=== PATIENT | female | born 1945 | race Caucasian/White ===

== ENCOUNTER 2018-11-13 10:03 | Emergency (ER) | payer MEDICARE, OTHER ==
--- NOTE | 2018-11-13 10:24 | EDM.PDOC ---
ED HPI GENERAL MEDICAL PROBLEM - General Chief Complaint: Respiratory Problem Stated Complaint: HARD TIME BREATHING [id number] Time Seen by Provider: 11/13/18 10:23 Source of Information: Reports: Patient History Limitations: Reports: No Limitations - History of Present Illness INITIAL COMMENTS - FREE TEXT/NARRATIVE: sob since back surgery 5 days ago. Middle Back Pain Score (Numeric/FACES): 7 - Related Data Allergies Allergy/AdvReac Type Severity Reaction Status Date / Time Penicillins Allergy Hives Verified 11/13/18 10:10 Home Meds: Home Meds Meloxicam 7.5 mg PO BID 10/07/18 [History] Omeprazole 20 mg PO DAILY 10/07/18 [History] amLODIPine Besylate [Amlodipine Besylate] 5 mg PO DAILY 10/07/18 [History] Acetaminophen/HYDROcodone [[place] 325-5 MG] 1 tab PO DAILY 11/13/18 [History] Past Medical History HEENT History: Reports: Cataract Cardiovascular History: Reports: Hypertension Respiratory History: Reports: COPD Gastrointestinal History: Reports: GERD Musculoskeletal History: Reports: Arthritis, Fracture - Infectious Disease History Infectious Disease History: Reports: Chicken Pox - Past Surgical History HEENT Surgical History: Reports: Cataract Surgery Female Surgical History: Reports: Breast Biopsy, Tubal Ligation Musculoskeletal Surgical History: Reports: Shoulder Surgery Social & Family History - Family History Family Medical History: Noncontributory - Tobacco Use Smoking Status *Q: Former Smoker Used Tobacco, but Quit: Yes Month/Year Tobacco Last Used: 2011 Second Hand Smoke Exposure: No - Caffeine Use Caffeine Use: Reports: Coffee - Recreational Drug Use Recreational Drug Use: No - Living Situation & Occupation Occupation: Retired ED ROS GENERAL - Review of Systems Review Of Systems: ROS reveals no pertinent complaints other than HPI. ED EXAM, GENERAL - Physical Exam Exam: See Below Exam Limited By: No Limitations General Appearance: Alert, WD/WN, Mild Distress, Other (discomfort) Ears: Hearing Grossly Normal Throat/Mouth: Normal Voice, No Airway Compromise Head: Atraumatic Neck: Non-Tender, Full Range of Motion Respiratory/Chest: No Respiratory Distress, No Accessory Muscle Use, Rales, Rhonchi Cardiovascular: Regular Rate, Rhythm GI/Abdominal: Soft, Non-Tender Neurological: Alert, Oriented, Normal Cognition, Normal Gait, No Motor/Sensory Deficits Psychiatric: Normal Affect, Normal Mood Skin Exam: Warm, Dry, Normal Color Lymphatic: No Adenopathy Course - Vital Signs Last Recorded V/S: Last Vital Signs Temp 35.9 C 11/13/18 10:05 Pulse 95 11/13/18 10:05 Resp 18 11/13/18 10:05 BP 206/99 H 11/13/18 10:05 Pulse Ox 99 11/13/18 12:33 - Orders/Labs/Meds Orders: Active Orders 24 hr Category Date Time Status EKG Documentation Completion [RC] STAT Care 11/13/18 10:20 Active RT Aerosol Therapy [RC] ASDIRECTED Care 11/13/18 12:33 Active Labs: Laboratory Tests 11/13/18 11/13/18 11/13/18 Range/Units 10:35 10:35 10:35 WBC 5.6 (5.0-10.0) 10^3/uL RBC 5.14 (4.2-5.4) 10^6/uL Hgb 14.5 D (12.0-16.0) g/dL Hct 43.1 (37.0-47.0) % MCV 83.9 (80-100) fL MCH 28.2 (27.0-34.0) pg MCHC 33.6 (33.0-35.0) g/dL Plt Count 341 D (150-450) 10^3/uL Neut % (Auto) 59.7 (42.2-75.2) % Lymph % (Auto) 26.8 (20.5-50.1) % [place] % (Auto) 10.5 H (2-8) % Eos % (Auto) 2.5 (1.0-3.0) % Baso % (Auto) 0.5 (0.0-1.0) % D-Dimer, Quantitative 677 H (0-400) ng/mL Sodium 135 (135-145) mmol/L Potassium 3.9 (3.6-5.0) mmol/L Chloride 98 L (101-111) mmol/L Carbon Dioxide 26.0 (21.0-31.0) mmol/L Anion Gap 14.9 BUN 15 (7-18) mg/dL Creatinine 1.0 (0.6-1.3) mg/dL Est Cr Clr Drug Dosing 43.27 mL/min Estimated GFR (MDRD) 54 BUN/Creatinine Ratio 15.00 Glucose 100 (74-105) mg/dL Calcium 9.9 (8.4-10.2) mg/dl Total Bilirubin 0.7 (0.2-1.0) mg/dL AST 20 (10-42) IU/L ALT 18 (10-60) IU/L Alkaline Phosphatase 67 (42-121) IU/L Troponin I < 0.02 (0.00-0.02) ng/ml B-Natriuretic Peptide 78 (0-100) pg/ml Total Protein 7.6 (6.7-8.2) g/dl Albumin 4.2 (3.2-5.5) g/dl Globulin 3.4 Albumin/Globulin Ratio 1.24 Ethyl Alcohol < 5 mg/dL Meds: Medications Discontinued Medications Generic Name Dose Route Start Last Admin Trade Name Freq PRN Reason Stop Dose Admin Albuterol/Ipratropium 3 ml 11/13/18 12:33 11/13/18 12:41 Duoneb 3.0-0.5 Mg/3 Ml NEB 11/13/18 12:34 3 ml ONETIME ONE Administration Iopamidol 100 ml 11/13/18 11:14 11/13/18 12:01 Isovue-370 (76%) IVPUSH 11/13/18 11:15 68 ml ONETIME ONE Administration - Re-Assessments/Exams Free Text/Narrative Re-Assessment/Exam: 11/13/18 12:36 results discussed with pt. Departure - Departure Time of Disposition: 12:46 Disposition: Home, Self-Care 01 Condition: Fair Clinical Impression: COPD exacerbation - Discharge Information Instructions: Chronic Obstructive Pulmonary Disease, [id number] Forms: ED Department Discharge Additional Instructions: 1) use neb 3 to 4 times daily as needed for breathing 2) drink lots of liquids 3) don't sleep flat at night 4) recheck if there is any change or concern rx given; albuterol 2.5mg solution prn - My Orders Last 24 Hours: My Active Orders 11/13/18 10:20 EKG Documentation Completion [RC] STAT 11/13/18 12:33 RT Aerosol Therapy [RC] ASDIRECTED - Assessment/Plan Last 24 Hours: My Active Orders 11/13/18 10:20 EKG Documentation Completion [RC] STAT 11/13/18 12:33 RT Aerosol Therapy [RC] ASDIRECTED
[2018-11-13 11:04] LABS: ANION GAP 14.9; CHLORIDE,CL 98 mmol/L (101-111); SODIUM,NA 135 mmol/L (135-145)
[2018-11-13] MEDS ORDERED: Iopamidol 755 Mg/ML 100 ML Bottle IVPUSH ONE (11:14)
--- NOTE | 2018-11-13 12:16 | CT ---
Clinical history: 73-year-old hypertensive 145 pound female (5 days postop) with shortness of breath and mild elevation serum D dimer (667). Rule out pulmonary artery thrombus or embolic disease. Scan technique: Volume acquisition of data from the chest (bony thorax, lungs and mediastinum) obtained with pulmonary embolism technique i.e. 68 cc nonionic Isovue 370 contrast at 4.5 cc/s via injector) while patient was lying supine on the Siemens multi slice scanner [place], [place]. All data archived in the PACS system for storage, reformatting axial/sagittal/coronal planes and study. Interpretation: 1. No sign of intraluminal filling defect or thrombus, focal areas of lobar oligemia, peripheral pleural-based wedge shaped infiltrate or infarct, or dependent pleural effusion. 2. Subpleural cysts and some atelectasis both apices and lower lobes. Mild peribronchial "cuffing". 3. No parenchymal lung nodule/mass lesion or significant hilar/mediastinal lymphadenopathy. 4. Normal cardiac silhouette. No pericardial effusion. Atheromatous calcifications normal caliber thoracic aorta (no aneurysm or dissection). No cephalization of vascular flow, signs of alveolar edema or pleural effusion. 5. Liver, stomach, spleen and pancreas unremarkable (where visualized). 6. Osteoporosis and mild kyphosis dorsal spine associated with mid thoracic vertebral plasty. CONCLUSION: Low probability pulmonary embolism or infarct i.e. negative. Normal cardiac silhouette without signs of heart failure. No lung mass or focal lobar pneumonia.
[2018-11-13] MEDS ORDERED: Albuterol/Ipratropium 3.0-0.5 MG/3 ML Neb Soln NEB ONE (12:33)
== END 2018-11-13 12:52 | disposition home or self-care (01) ==
LOC: DL.ED 10:03
DX: J44.1 Chronic obstructive pulmonary disease with (acute) exacerbation (principal); Z88.0 Allergy status to penicillin; Z79.899 Other long term (current) drug therapy; Z87.891 Personal history of nicotine dependence
CPT/HCPCS: 36415; 71260; 80053; 83880; 84484; 85025; 85379; 93005; 94640; 99285; G0480; Q9967; J7620-GY

== ENCOUNTER → 2018-12-08 | Outpatient (CLI) | payer MEDICARE, OTHER ==
[~2018-12-08] MED LIST: Denosumab 60 MG/1 ML Syringe SUBCUT ONE
== END ==
LOC: DL.IVTHER 11:51
PROVIDERS: ATTEND Nurse Practitioner
DX: M81.0 Age-related osteoporosis without current pathological fracture (principal)
CPT/HCPCS: 96372; J0897

== ENCOUNTER 2021-01-19 09:45 | Inpatient (IN) | payer MEDICARE, OTHER ==
--- NOTE | 2021-01-19 10:33 | EDM.PDOC ---
ED HPI GENERAL MEDICAL PROBLEM - General Chief Complaint: Cardiovascular Problem Stated Complaint: LIGHTHEADED / Time Seen by Provider: 01/19/21 10:20 Source of Information: Reports: Patient History Limitations: Reports: No Limitations - History of Present Illness INITIAL COMMENTS - FREE TEXT/NARRATIVE: This 75 yo female patient reports to the ED with a 3 week history of increased lightheadedness, decreased appetite and weight loss. The patient reports she did see her primary care facility last week (Jessy [facility]). The patient did get started on a vitamin B12 shot, an iron pill and magnesium. The patient also reports she went to see a kidney specialist last week who changed her "water pill". The patient reports she has increased lightheadedness after standing up for only a s mall amount of time. The patient denies any episodes of syncope. Duration: Week(s):, Constant, Getting Worse Location: Reports: Generalized Quality: Reports: Other Severity: Moderate Improves with: Reports: None Worsens with: Reports: None Context: Reports: Other Associated Symptoms: Reports: No Other Symptoms - Related Data Allergies Allergy/AdvReac Type Severity Reaction Status Date / Time bee venom protein (honey bee) Allergy Swelling Verified 12/15/20 10:14 Penicillins Allergy Hives Verified 12/15/20 10:14 Home Meds: Home Meds Omeprazole 40 mg PO DAILY 10/07/18 [History] amLODIPine Besylate [Amlodipine Besylate] 5 mg PO DAILY 10/07/18 [History] Calcium Carbonate/Vitamin D3 [Calcium 500 + Vit D 400] 1 tab PO DAILY 12/08/18 [History] Ibuprofen 600 mg PO ASDIRECTED PRN 12/08/18 [History] Olmesartan Medoxomil 40 mg PO DAILY 12/14/19 [History] Leflunomide 20 mg PO DAILY 06/16/20 [History] hydroCHLOROthiazide [Hydrochlorothiazide] 25 mg PO DAILY 12/10/20 [History] Past Medical History HEENT History: Reports: Cataract Cardiovascular History: Reports: High Cholesterol, Hypertension Respiratory History: Reports: COPD Gastrointestinal History: Reports: GERD Genitourinary History: Reports: UTI, Recurrent [employer] History: Reports: , Spontaneous Other [employer] History: 6 para 5 Musculoskeletal History: Reports: Arthritis, Fracture, Osteoporosis, RA Neurological History: Reports: None Psychiatric History: Reports: None Endocrine/Metabolic History: Reports: Osteoporosis, Vitamin D Deficiency Hematologic History: Reports: None Immunologic History: Reports: None Oncologic (Cancer) History: Reports: None Dermatologic History: Reports: None - Infectious Disease History Infectious Disease History: Reports: Chicken Pox - Past Surgical History HEENT Surgical History: Reports: Cataract Surgery Cardiovascular Surgical History: Reports: None Respiratory Surgical History: Reports: None GI Surgical History: Reports: Colonoscopy Female Surgical History: Reports: Breast Biopsy, Section, Cervical Cryotherapy, Tubal Ligation, Other (See Below) Other Female Surgeries/Procedures: L) breast lumpectomy Endocrine Surgical History: Reports: None Neurological Surgical History: Reports: Other (See Below) Other Neurological Surgeries/Procedures: fx vertebrea with surg Musculoskeletal Surgical History: Reports: Shoulder Surgery, Other (See Below) Other Musculoskeletal Surgeries/Procedures:: R) hip pinning Oncologic Surgical History: Reports: Biopsy of Breast Social & Family History - Family History Family Medical History: No Pertinent Family History - Tobacco Use Tobacco Use Status *Q: Never Tobacco User - Caffeine Use Caffeine Use: Reports: None Other Caffeine Use: average of 4 cups daily of half caff - Recreational Drug Use Recreational Drug Use: No - Living Situation & Occupation Occupation: Retired ED ROS GENERAL - Review of Systems Review Of Systems: Comprehensive ROS is negative, except as noted in HPI. ED EXAM, GENERAL - Physical Exam Exam: See Below Exam Limited By: No Limitations General Appearance: Alert, WD/WN, Moderate Distress, Thin Eye Exam: Bilateral Eye: EOMI, Normal Inspection, PERRL Ears: Normal External Exam, Normal Canal, Hearing Grossly Normal, Normal TMs Nose: Normal Inspection, Normal Mucosa, No Blood Throat/Mouth: Normal Inspection Head: Atraumatic, Normocephalic Neck: Normal Inspection, Supple, Non-Tender, Full Range of Motion Respiratory/Chest: No Respiratory Distress, Lungs Clear, Normal Breath Sounds, No Accessory Muscle Use, Chest Non-Tender Cardiovascular: Normal Peripheral Pulses, Regular Rate, Rhythm, No Edema, No Gallop, No JVD, No Murmur, No Rub GI/Abdominal: Normal Bowel Sounds, Soft, Non-Tender, No Organomegaly, No Distention, No Abnormal Bruit, No Mass (Female) Exam: Deferred Rectal (Female) Exam: Deferred Back Exam: Normal Inspection, Full Range of Motion, NT Extremities: Normal Inspection, Normal Range of Motion, Non-Tender, Normal Capillary Refill, No Pedal Edema Neurological: Alert, Oriented, CN II-XII Intact, Normal Cognition, Normal Gait, Normal Reflexes, No Motor/Sensory Deficits Psychiatric: Normal Affect, Normal Mood Skin Exam: Warm, Dry, Intact, Normal Color, No Rash Lymphatic: No Adenopathy #1 Interpretation EKG Date: 01/19/21 Time: 10:15 Rhythm: NSR Rate (Beats/Min): 94 [place]: Normal P-Wave: Present QRS: Normal ST-T: Normal QT: Normal Comparison: No Change Course - Vital Signs Last Recorded V/S: Last Vital Signs Temp 36.3 C 01/19/21 10:14 Pulse 103 H 01/19/21 10:14 Resp 14 01/19/21 10:14 BP 163/79 H 01/19/21 10:14 Pulse Ox 95 01/19/21 10:14 Orthostatic Blood Pressure [ 98/56 Standing] Orthostatic Blood Pressure [ 130/64 Sitting] Orthostatic Blood Pressure [ 157/59 Supine] - Orders/Labs/Meds Orders: Active Orders 24 hr Category Date Time Status Admission Diagnosis [ADT] Urgent ADT 01/19/21 11:51 Ordered Admission Status [Patient Status] [ADT] Routine ADT 01/19/21 11:51 Ordered EKG Documentation Completion [RC] STAT Care 01/19/21 10:06 Active CREATININE,URINE RAND [URCHEM] Stat Lab 01/19/21 11:52 Ordered OSMOLALITY - URINE Stat Lab 01/19/21 11:52 Ordered SODIUM,URINE RANDOM [URCHEM] Stat Lab 01/19/21 11:52 Ordered Magnesium Sulfate 1 GM in D5 @ 100 MLS/HR (100ml) Med 01/19/21 11:43 Ordered Magnesium Sulfate/D5W [Magnesium Sulfate in D5W 1 GM/ 100 ML] 1 gm in 100 ml IV ONETIME Sodium Chloride 0.9% [Normal Saline] 1,000 ml Med 01/19/21 11:09 Ordered IV .BOLUS Medication Orders Sodium Chloride (Normal Saline) 1,000 mls @ 999 mls/hr IV .BOLUS ONE Stop: 01/19/21 12:09 Last Admin: 01/19/21 11:19 Dose: 999 mls/hr Documented by: BRITTON Magnesium Sulfate/Dextrose (Magnesium Sulfate In D5w 1 Gm/100 Ml) 1 gm in 100 mls @ 100 mls/hr IV ONETIME ONE Stop: 01/19/21 12:42 Last Admin: 01/19/21 11:51 Dose: 100 mls/hr Documented by: YOUNG Labs: Laboratory Tests 01/19/21 01/19/21 01/19/21 Range/Units 10:16 10:16 10:16 WBC 5.9 (5.0-10.0) 10^3/uL RBC 5.02 (4.2-5.4) 10^6/uL Hgb 13.6 (12.0-16.0) g/dL Hct 40.0 (37.0-47.0) % MCV 79.7 L (80-100) fL MCH 27.1 (27.0-34.0) pg MCHC 34.0 (33.0-35.0) g/dL Plt Count 318 (150-450) 10^3/uL Neut % (Auto) 59.5 (42.2-75.2) % Lymph % (Auto) 19.8 L (20.5-50.1) % [place] % (Auto) 16.2 H (2-8) % Eos % (Auto) 3.6 H (1.0-3.0) % Baso % (Auto) 0.9 (0.0-1.0) % Sodium 126 L (136-145) mmol/L Potassium 4.6 (3.5-5.1) mmol/L Chloride 88 L (98-107) mmol/L Carbon Dioxide 31 (21-32) mmol/L Anion Gap 11.6 (7-13) mEq/L BUN 22 H (7-18) mg/dL Creatinine 1.74 H (0.55-1.02) mg/dL Est Cr Clr Drug Dosing 24.12 mL/min Estimated GFR (MDRD) 29 BUN/Creatinine Ratio 12.6 (No establ ref range) Glucose 114 H (70-99) mg/dL Calcium 9.0 (8.5-10.1) mg/dL Magnesium 1.4 L (1.8-2.4) mg/dL Total Bilirubin 0.4 (0.2-1.0) mg/dL AST 17 (15-37) U/L ALT 18 (14-59) U/L Alkaline Phosphatase 68 (46-116) U/L Troponin I < 0.017 (0.000-0.056) ng/mL Total Protein 7.1 (6.4-8.2) g/dL Albumin 3.1 L (3.4-5.0) g/dL Globulin 4.0 Albumin/Globulin Ratio 0.78 Meds: Medications Generic Name Dose Route Start Last Admin Trade Name Freq PRN Reason Stop Dose Admin Sodium Chloride 1,000 mls @ 999 mls/hr 01/19/21 11:09 01/19/21 11:19 Normal Saline IV 01/19/21 12:09 999 mls/hr .BOLUS ONE Administration Magnesium Sulfate/Dextrose 1 gm in 100 mls @ 100 mls/hr 01/19/21 11:43 01/19/21 11:51 Magnesium Sulfate In D5w 1 Gm/100 Ml IV 01/19/21 12:42 100 mls/hr ONETIME ONE Administration Departure - Departure Time of Disposition: 11:53 Disposition: Admitted As Inpatient 66 Condition: Fair Clinical Impression: Hyponatremia, Hypomagnesemia Forms: ED Department Discharge Care Plan Goals: Discussed the patient's history, examination, lab results and treatments with Dr. Garcia. Dr. Garcia accepted the patient for continued evaluation and management as an inpatient at [facility] in [place]. Sepsis Event Note (ED) - Evaluation Sepsis Screening Result: No Definite Risk - Focused Exam Vital Signs: Vital Signs Temp Pulse Resp BP Pulse Ox 01/19/21 10:14 36.3 C 103 H 14 163/79 H 95 - My Orders Last 24 Hours: My Active Orders 01/19/21 10:06 EKG Documentation Completion [RC] STAT 01/19/21 11:09 Sodium Chloride 0.9% [Normal Saline] 1,000 ml IV .BOLUS 01/19/21 11:43 Magnesium Sulfate 1 GM in D5 @ 100 MLS/HR (100ml) Magnesium Sulfate/D5W [Magnesium Sulfate in D5W 1 GM/100 ML] 1 gm in 100 ml IV ONETIME 01/19/21 11:51 Admission Diagnosis [ADT] Urgent Admission Status [Patient Status] [ADT] Routine - Assessment/Plan Last 24 Hours: My Active Orders 01/19/21 10:06 EKG Documentation Completion [RC] STAT 01/19/21 11:09 Sodium Chloride 0.9% [Normal Saline] 1,000 ml IV .BOLUS 01/19/21 11:43 Magnesium Sulfate 1 GM in D5 @ 100 MLS/HR (100ml) Magnesium Sulfate/D5W [Magnesium Sulfate in D5W 1 GM/100 ML] 1 gm in 100 ml IV ONETIME 01/19/21 11:51 Admission Diagnosis [ADT] Urgent Admission Status [Patient Status] [ADT] Routine
[2021-01-19 10:42] LABS: ANION GAP 11.6 mEq/L (7-13); CHLORIDE,CL 88 mmol/L (98-107); SODIUM,NA 126 mmol/L (136-145)
--- NOTE | 2021-01-19 11:01 | CR ---
PROCEDURE INFORMATION: Exam: XR Chest Exam date and time: 01/19/2021 10:33 AM Age: 75 years old Clinical indication: Lightheaded/dizzy TECHNIQUE: Imaging protocol: XR of the chest. Views: 2 views. COMPARISON: CR Chest 1V Frontal 10/07/2018 1:37 PM FINDINGS: Lungs: Unremarkable. No consolidation. Pleural spaces: No effusion, pneumothorax, infiltrate or dense consolidation is present. Heart/Mediastinum: Unremarkable. No cardiomegaly. Vasculature: There are atherosclerotic calcifications. Bones/joints: There is exaggerated kyphosis with kyphoplasty/fracture of a midthoracic vertebral body. IMPRESSION: No active intrathoracic process
[2021-01-19] MEDS ORDERED: Sodium Chloride 0.9% 1,000 ML IV ONE (11:09)
[2021-01-19] MEDS ORDERED: Magnesium Sulfate/D5W 1 GM/100 ML BAG IV ONE (11:43)
[2021-01-19] MEDS ORDERED: Ondansetron 4 MG Tab.DIS PO PRN (13:24)
[2021-01-19] MEDS ORDERED: Acetaminophen 325 MG Tab PO PRN (13:24)
[2021-01-19] MEDS: Heparin Sodium 5,000 Units/ML Vial SUBCUT SCH ×2 (14:31→22:41)
[2021-01-19] MEDS: Sodium Chloride 0.9% 1,000 ML IV SCH ×2 (14:33→22:39)
--- NOTE | 2021-01-19 18:19 | PCM.HP ---
H&P History of Present Illness - General Date of Service: 01/19/21 Admit Problem/Dx: Admission Diagnosis/Problem Admission Diagnosis/Problem Hyponatremia - History of Present Illness Initial Comments - Free Text/Narative: 75F w/ pmh RA, COPD, GERD, HT, recurrent UTIs, osteoporosis, Vit D def, breast ca s/p lumpectomy p/w weakness and dizziness. She describes 3 weeks of worsening lightheadedness. Has not fallen. Feels dry. No fevers. Denies vertigo. c/o 1 year 25 lbs weight loss. Loss of appetite in past weeks as well. Has chronic productive cough but no hemoptysis. Up to date on mammograms. Has scheduled cscope next mo. No bloody stools. ER evaluation found hyponatremia, hypomagnesemia, SYED and orthostasis. - Related Data Allergies/Adverse Reactions: Allergies Allergy/AdvReac Type Severity Reaction Status Date / Time bee venom protein (honey bee) Allergy Swelling Verified 12/15/20 10:14 Penicillins Allergy Hives Verified 12/15/20 10:14 Home Medications: Home Meds Omeprazole 40 mg PO DAILY 10/07/18 [History] amLODIPine Besylate [Amlodipine Besylate] 5 mg PO DAILY 10/07/18 [History] Calcium Carbonate/Vitamin D3 [Calcium 500 + Vit D 400] 1 tab PO DAILY 12/08/18 [History] Olmesartan Medoxomil 40 mg PO DAILY 12/14/19 [History] Leflunomide 20 mg PO DAILY 06/16/20 [History] Cyanocobalamin (Vitamin B12) [Vitamin B13] 500 mcg PO DAILY 01/19/21 [History] Furosemide [Lasix] 20 mg PO TUTHSA 01/19/21 [History] Magnesium 250 mg PO DAILY 01/19/21 [History] Metoprolol Succinate 25 mg PO DAILY 01/19/21 [History] Past Medical History HEENT History: Reports: Cataract Cardiovascular History: Reports: High Cholesterol, Hypertension Respiratory History: Reports: COPD Gastrointestinal History: Reports: GERD Genitourinary History: Reports: UTI, Recurrent POLE CLIMBER History: Reports: , Spontaneous Other OB/BYN History: 6 para 5 Musculoskeletal History: Reports: Arthritis, Fracture, Osteoporosis, RA Neurological History: Reports: None Psychiatric History: Reports: None Endocrine/Metabolic History: Reports: Osteoporosis, Vitamin D Deficiency Hematologic History: Reports: None Immunologic History: Reports: None Oncologic (Cancer) History: Reports: None Dermatologic History: Reports: None - Infectious Disease History Infectious Disease History: Reports: Chicken Pox - Past Surgical History HEENT Surgical History: Reports: Cataract Surgery Cardiovascular Surgical History: Reports: None Respiratory Surgical History: Reports: None GI Surgical History: Reports: Colonoscopy Female Surgical History: Reports: Breast Biopsy, Section, Cervical Cryotherapy, Tubal Ligation, Other (See Below) Other Female Surgeries/Procedures: L) breast lumpectomy Endocrine Surgical History: Reports: None Neurological Surgical History: Reports: Other (See Below) Other Neurological Surgeries/Procedures: fx vertebrea with surg Musculoskeletal Surgical History: Reports: Shoulder Surgery, Other (See Below) Other Musculoskeletal Surgeries/Procedures:: R) hip pinning Oncologic Surgical History: Reports: Biopsy of Breast Social & Family History - Family History Family Medical History: No Pertinent Family History - Tobacco Use Tobacco Use Status *Q: Former Tobacco User Used Tobacco, but Quit: Yes Month/Year Tobacco Last Used: 2010 Second Hand Smoke Exposure: No - Caffeine Use Caffeine Use: Reports: Coffee Other Caffeine Use: average of 4 cups daily of half caff - Recreational Drug Use Recreational Drug Use: No - Living Situation & Occupation Occupation: Retired H&P Review of Systems - Review of Systems: Review Of Systems: See Below General: Reports: Malaise, Weakness, Weight Loss. Denies: Fever, Chills, Diaphoresis HEENT: Denies: Headaches Pulmonary: Reports: Cough, Sputum. Denies: Shortness of Breath, Hemoptysis Cardiovascular: Denies: Chest Pain, Palpitations, Edema Gastrointestinal: Reports: Decreased Appetite. Denies: Abdominal Pain, Bloody Stool Genitourinary: Denies: Dysuria, Frequency Musculoskeletal: Denies: Neck Pain Skin: Denies: Jaundice Psychiatric: Denies: Confusion Neurological: Reports: Dizziness. Denies: Tremors Hematologic/Lymphatic: Denies: Anemia Exam - Exam Exam: See Below - Vital Signs Vital Signs: Last Vital Signs Temp 100.2 F 01/19/21 16:22 Pulse 91 01/19/21 16:22 Resp 16 01/19/21 16:22 BP 156/64 H 01/19/21 16:22 Pulse Ox 90 L 01/19/21 16:22 Orthostatic Blood Pressure [ 98/56 Standing] Orthostatic Blood Pressure [ 130/64 Sitting] Orthostatic Blood Pressure [ 157/59 Supine] Weight: 125 lb 12.8 oz - Exam Quality Assessment: No: Supplemental Oxygen General: Alert, Oriented HEENT: Conjunctiva Clear Neck: Supple Lungs: Clear to Auscultation, Normal Respiratory Effort Cardiovascular: Regular Rate, Regular Rhythm GI/Abdominal Exam: Normal Bowel Sounds, Soft, Non-Tender Extremities: Normal Inspection, No Pedal Edema Skin: Warm, Dry, Intact Neurological: Cranial Nerves Intact Neuro Extensive - Mental Status: Alert, Oriented x3 Neuro Extensive - Motor, Sensory, Reflexes: No: Tremor Psychiatric: Alert, Normal Affect, Normal Mood - Patient Data Lab Results Last 24 hrs: Laboratory Results - last 24 hr 01/19/21 01/19/21 01/19/21 Range/Units 10:16 10:16 10:16 WBC 5.9 (5.0-10.0) 10^3/uL RBC 5.02 (4.2-5.4) 10^6/uL Hgb 13.6 (12.0-16.0) g/dL Hct 40.0 (37.0-47.0) % MCV 79.7 L (80-100) fL MCH 27.1 (27.0-34.0) pg MCHC 34.0 (33.0-35.0) g/dL Plt Count 318 (150-450) 10^3/uL Neut % (Auto) 59.5 (42.2-75.2) % Lymph % (Auto) 19.8 L (20.5-50.1) % [place] % (Auto) 16.2 H (2-8) % Eos % (Auto) 3.6 H (1.0-3.0) % Baso % (Auto) 0.9 (0.0-1.0) % Sodium 126 L (136-145) mmol/L Potassium 4.6 (3.5-5.1) mmol/L Chloride 88 L (98-107) mmol/L Carbon Dioxide 31 (21-32) mmol/L Anion Gap 11.6 (7-13) mEq/L BUN 22 H (7-18) mg/dL Creatinine 1.74 H (0.55-1.02) mg/dL Est Cr Clr Drug Dosing 24.12 mL/min Estimated GFR (MDRD) 29 BUN/Creatinine Ratio 12.6 (No establ ref range) Glucose 114 H (70-99) mg/dL Calcium 9.0 (8.5-10.1) mg/dL Magnesium 1.4 L (1.8-2.4) mg/dL Total Bilirubin 0.4 (0.2-1.0) mg/dL AST 17 (15-37) U/L ALT 18 (14-59) U/L Alkaline Phosphatase 68 (46-116) U/L Troponin I < 0.017 (0.000-0.056) ng/mL Total Protein 7.1 (6.4-8.2) g/dL Albumin 3.1 L (3.4-5.0) g/dL Globulin 4.0 Albumin/Globulin Ratio 0.78 Ur Random Creatinine (No establ ref range) mg/dL Ur Random Sodium (No establ.ref range) mmol/L SARS-CoV-2 RNA (RAEGAN) (NEGATIVE) 01/19/21 01/19/21 Range/Units 11:56 12:29 WBC (5.0-10.0) 10^3/uL RBC (4.2-5.4) 10^6/uL Hgb (12.0-16.0) g/dL Hct (37.0-47.0) % MCV (80-100) fL MCH (27.0-34.0) pg MCHC (33.0-35.0) g/dL Plt Count (150-450) 10^3/uL Neut % (Auto) (42.2-75.2) % Lymph % (Auto) (20.5-50.1) % [place] % (Auto) (2-8) % Eos % (Auto) (1.0-3.0) % Baso % (Auto) (0.0-1.0) % Sodium (136-145) mmol/L Potassium (3.5-5.1) mmol/L Chloride (98-107) mmol/L Carbon Dioxide (21-32) mmol/L Anion Gap (7-13) mEq/L BUN (7-18) mg/dL Creatinine (0.55-1.02) mg/dL Est Cr Clr Drug Dosing mL/min Estimated GFR (MDRD) BUN/Creatinine Ratio (No establ ref range) Glucose (70-99) mg/dL Calcium (8.5-10.1) mg/dL Magnesium (1.8-2.4) mg/dL Total Bilirubin (0.2-1.0) mg/dL AST (15-37) U/L ALT (14-59) U/L Alkaline Phosphatase (46-116) U/L Troponin I (0.000-0.056) ng/mL Total Protein (6.4-8.2) g/dL Albumin (3.4-5.0) g/dL Globulin Albumin/Globulin Ratio Ur Random Creatinine 209.32 (No establ ref range) mg/dL Ur Random Sodium 14 (No establ.ref range) mmol/L SARS-CoV-2 RNA (RAEGAN) Negative (NEGATIVE) Result Diagrams: 01/19/21 10:16 01/19/21 10:16 Problem List Initiated/Reviewed/Updated: Yes Orders Last 24hrs: Active Orders 24 hr Category Date Time Status Admission Diagnosis [ADT] Urgent ADT 01/19/21 11:51 Ordered Admission Status [Patient Status] [ADT] Routine ADT 01/19/21 11:51 Active Patient Status [ADT] Routine ADT 01/19/21 13:24 Active Antiembolic Devices [RC] PER UNIT ROUTINE Care 01/19/21 13:28 Active Oxygen Therapy [RC] PRN Care 01/19/21 13:24 Active Up With Assistance [RC] ASDIRECTED Care 01/19/21 13:24 Active VTE/DVT Education [RC] 08,20 Care 01/19/21 13:24 Active Vital Signs [RC] Q4H Care 01/19/21 13:24 Active Regular Diet [DIET] Diet 01/19/21 Dinner Active Chest wo Cont [CT] Routine Exams 01/19/21 13:29 Taken BASIC METABOLIC PANEL,BMP [CHEM] AM Lab 01/20/21 05:11 Ordered MAGNESIUM [CHEM] AM Lab 01/20/21 05:11 Ordered OSMOLALITY - URINE Stat Lab 01/19/21 12:29 Received PHOSPHORUS [CHEM] AM Lab 01/20/21 05:11 Ordered Acetaminophen [TylenoL] Med 01/19/21 13:24 Active 650 mg PO Q4H PRN Heparin Sodium Med 01/19/21 14:00 Active 5,000 units SUBCUT Q8HR Leflunomide [Leflunomide] Med 01/20/21 09:00 Pending 20 mg PO DAILY Metoprolol Succinate [Toprol XL] Med 01/20/21 09:00 Active 25 mg PO DAILY Omeprazole Med 01/20/21 06:00 Active 40 mg PO ACBRK Ondansetron [Zofran ODT] Med 01/19/21 13:24 Active 4 mg PO Q4H PRN Sodium Chloride 0.9% [Normal Saline] 1,000 ml Med 01/19/21 14:15 Active IV ASDIRECTED amLODIPine [Norvasc] Med 01/20/21 09:00 Active 5 mg PO DAILY Antiembolic Hose [OM.PC] Per Unit Routine Oth 01/19/21 13:26 Ordered Resuscitation Status Routine Resus Stat 01/19/21 13:24 Ordered Medication Orders Acetaminophen (Acetaminophen 325 Mg Tab) 650 mg PO Q4H PRN PRN Reason: Pain (Mild 1-3)/fever Amlodipine Besylate (Amlodipine 5 Mg Tab) 5 mg PO DAILY [facility] Heparin Sodium (Porcine) (Heparin Sodium 5,000 Units/Ml Vial) 5,000 units SUBCUT Q8HR [facility] Last Admin: 01/19/21 14:31 Dose: 5,000 units Documented by: LUPE Sodium Chloride (Normal Saline) 1,000 mls @ 125 mls/hr IV ASDIRECTED [facility] Last Admin: 01/19/21 14:33 Dose: 125 mls/hr Documented by: LUPE Metoprolol Succinate (Metoprolol Succinate 25 Mg Tab.Er) 25 mg PO DAILY [facility] Non-Formulary Medication (Leflunomide [Leflunomide]) 20 mg PO DAILY [facility] Omeprazole (Omeprazole 20 Mg Cap.Cr) 40 mg PO ACBRK [facility] Ondansetron HCl (Ondansetron 4 Mg Tab.Dis) 4 mg PO Q4H PRN PRN Reason: nausea, able to take PO Assessment/Plan Comment:: #lightheadedness - appears dry, orthostatic +, hyponatremia - hold diuretic - hydrate #SYED - FENa 0.1% - pre-renal #hypovolemic hyponatremia - awaiting urine osm but based on above will hydrate #hypomagnesemia - replete #weight loss - needs age appropriate malignancy screening - chest CT today #HT - was switched from HCTZ to lasix 4 days ago - hold PPX - SQH
--- NOTE | 2021-01-19 19:20 | CT ---
EXAMINATION: Chest wo Cont SEX: Female AGE: 75 years CLINICAL HISTORY: 75-year-old 125 pound hypertensive female ex-smoker (long-term) with hyponatremia, cough and weight loss. CT chest 13 November 2018 was "negative." ("Bronchitis" reported [address] chest.) Scan technique: Volume acquisition of data screening unenhanced CT scan of the chest (bony thorax, lungs and mediastinum) obtained with the patient lying supine on the Siemens multislice scanner [place], [place]. All data archived in the PACS system for storage, reformatting axial/sagittal/coronal planes and study (lung/mediastinal windows). Comparison chest CT November 2018 and March 2018. Interpretation: No new signs of primary lung malignancy, heart failure or lobar pneumonia. Abnormal spine. 1. Densely calcified "cast" normal caliber thoracic and upper abdominal aorta. No aneurysm or dissection. 2. Dense calcification cardiac ventricular septum. No pericardial effusion. 3. Osteoporosis. 50% compression, densely sclerotic (blastic?) T7 vertebral body mid dorsal spine unchanged since November 2018. Associated kyphosis. Schmorl's node defects. Insufficiency fractures T10, L2, and L3 vertebral bodies. No spondylolisthesis. 3. Multiple scattered tiny parenchymal lung cysts in both upper lobes and bilateral peribronchial "cuffing." Generalized air trapping and overall appearance consistent with COPD. 4. No suspicious new parenchymal lung nodule or mass lesion. No hilar or mediastinal lymphadenopathy. 5. No alveolar infiltrate, atelectasis/collapse, or peripheral "ground glass" interstitial lung density. 6. No pneumothorax or pneumomediastinum. 7. Unenhanced liver, stomach, spleen and adrenal glands unremarkable.
[2021-01-19] MEDS ORDERED: Metoprolol Succinate 25 MG Tab.ER PO ONE (23:23)
[2021-01-19] MEDS ORDERED: amLODIPine 5 MG Tab PO ONE (23:23)
[2021-01-20] MEDS: Omeprazole 20 MG Cap.CR PO SCH (05:11)
[2021-01-20] MEDS: Heparin Sodium 5,000 Units/ML Vial SUBCUT SCH ×3 (05:12→21:56)
[2021-01-20] MEDS: Sodium Chloride 0.9% 1,000 ML IV SCH ×3 (05:19→21:55)
[2021-01-20 07:29] LABS: ANION GAP 11.8 mEq/L (7-13)
[2021-01-20] MEDS: amLODIPine 5 MG Tab PO SCH (10:40)
[2021-01-20] MEDS: Metoprolol Succinate 25 MG Tab.ER PO SCH (10:40)
[2021-01-20] MEDS: LEFLUNOMIDE 20 MG PO SCH (10:41)
[2021-01-20] MEDS ORDERED: Melatonin 3 MG Tab PO PRN (17:28)
[2021-01-21] MEDS: Sodium Chloride 0.9% 1,000 ML IV SCH (05:49)
[2021-01-21] MEDS: Omeprazole 20 MG Cap.CR PO SCH (05:51)
[2021-01-21] MEDS: Heparin Sodium 5,000 Units/ML Vial SUBCUT SCH (05:52)
[2021-01-21] MEDS: Metoprolol Succinate 25 MG Tab.ER PO SCH (08:07)
[2021-01-21] MEDS: amLODIPine 5 MG Tab PO SCH (08:07)
[2021-01-21] MEDS: LEFLUNOMIDE 20 MG PO SCH (08:08)
--- NOTE | 2021-01-21 10:07 | PCM.PN ---
- General Info Date of Service: 01/20/21 Subjective Update: LATE NOTE - PT SEEN 01/20 Hypertensive overnight. Asymptomatic. Did not take am meds so they were dosed. Significantly less dizzy. No dyspnea. - Patient Data Vitals - Most Recent: Last Vital Signs Temp 97.7 F 01/21/21 07:53 Pulse 95 01/21/21 08:07 Resp 20 01/21/21 07:53 BP 176/72 H 01/21/21 08:07 Pulse Ox 96 01/21/21 07:53 Orthostatic Blood Pressure [ 98/56 Standing] Orthostatic Blood Pressure [ 130/64 Sitting] Orthostatic Blood Pressure [ 157/59 Supine] Weight - Most Recent: 125 lb 12.8 oz I&O - Last 24 Hours: Intake & Output 01/20/21 01/21/21 01/21/21 22:59 06:59 14:59 Intake Total 1300 982 395 Balance 1300 982 395 Med Orders - Current: Current Medications Acetaminophen (Acetaminophen 325 Mg Tab) 650 mg PO Q4H PRN PRN Reason: Pain (Mild 1-3)/fever Amlodipine Besylate (Amlodipine 5 Mg Tab) 5 mg PO DAILY [facility] Last Admin: 01/21/21 08:07 Dose: 5 mg Documented by: Heparin Sodium (Porcine) (Heparin Sodium 5,000 Units/Ml Vial) 5,000 units SUBCUT Q8HR [facility] Last Admin: 01/21/21 05:52 Dose: 5,000 units Documented by: Sodium Chloride (Normal Saline) 1,000 mls @ 125 mls/hr IV ASDIRECTED [facility] Last Admin: 01/21/21 05:49 Dose: 125 mls/hr Documented by: Melatonin (Melatonin 3 Mg Tab) 3 mg PO BEDTIME PRN PRN Reason: Insomnia Last Admin: 01/20/21 22:21 Dose: 3 mg Documented by: Metoprolol Succinate (Metoprolol Succinate 25 Mg Tab.Er) 25 mg PO DAILY [facility] Last Admin: 01/21/21 08:07 Dose: 25 mg Documented by: Leflunomide 20 Mg (Tab *Own Med*) 20 mg PO DAILY [facility] Last Admin: 01/21/21 08:08 Dose: 20 mg Documented by: Omeprazole (Omeprazole 20 Mg Cap.Cr) 40 mg PO ACBRK [facility] Last Admin: 01/21/21 05:51 Dose: 40 mg Documented by: Ondansetron HCl (Ondansetron 4 Mg Tab.Dis) 4 mg PO Q4H PRN PRN Reason: nausea, able to take PO Discontinued Medications Amlodipine Besylate (Amlodipine 5 Mg Tab) 5 mg PO ONETIME ONE Stop: 01/19/21 23:24 Last Admin: 01/19/21 23:37 Dose: 5 mg Documented by: Sodium Chloride (Normal Saline) 1,000 mls @ 999 mls/hr IV .BOLUS ONE Stop: 01/19/21 12:09 Last Admin: 01/19/21 11:19 Dose: 999 mls/hr Documented by: Magnesium Sulfate/Dextrose (Magnesium Sulfate In D5w 1 Gm/100 Ml) 1 gm in 100 mls @ 100 mls/hr IV ONETIME ONE Stop: 01/19/21 12:42 Last Infusion: 01/19/21 13:09 Dose: Infused Documented by: Metoprolol Succinate (Metoprolol Succinate 25 Mg Tab.Er) 25 mg PO ONETIME ONE Stop: 01/19/21 23:24 Last Admin: 01/19/21 23:37 Dose: 25 mg Documented by: - Exam Quality Assessment: No: Supplemental Oxygen General: Alert, Oriented HEENT: Pupils Equal, Pupils Reactive Lungs: Clear to Auscultation, Normal Respiratory Effort Cardiovascular: Regular Rate, Regular Rhythm GI/Abdominal Exam: Normal Bowel Sounds, Soft, Non-Tender, No Distention Extremities: No Pedal Edema Skin: Warm, Dry, Intact Neurological: No New Focal Deficit Psy/Mental Status: Alert, Normal Affect, Normal Mood - Patient Data Result Diagrams: 01/19/21 10:16 01/20/21 06:30 Sepsis Event Note - Evaluation Sepsis Screening Result: No Definite Risk - Focused Exam Vital Signs: Vital Signs Temp Pulse Pulse Resp BP BP BP 01/21/21 08:07 95 176/72 H 01/21/21 07:53 97.7 F 95 20 176/72 H 01/21/21 02:53 98.8 F 89 20 172/62 H 01/21/21 02:23 01/21/21 02:21 01/21/21 00:00 98.7 F 106 H 20 153/77 H Pulse Ox 01/21/21 08:07 01/21/21 07:53 96 01/21/21 02:53 94 L 01/21/21 02:23 89 L 01/21/21 02:21 86 L 01/21/21 00:00 91 L - Problem List Review Problem List Initiated/Reviewed/Updated: Yes - My Orders Last 24 Hours: My Active Orders 01/20/21 10:00 Leflunomide [Leflunomide] 20 mg PO DAILY 01/20/21 17:28 Melatonin 3 mg PO BEDTIME PRN 01/21/21 08:53 CXR [Chest 1V Frontal] [CR] Routine - Plan Plan:: #lightheadedness - appears dry, orthostatic +, hyponatremia - resolved w/ holding diuretics and hydration #SYED - FENa 0.1% - pre-renal #hypovolemic hyponatremia - resolved #hypomagnesemia - repleted #weight loss - needs age appropriate malignancy screening - chest CT neg for m alignancy but suggestive of underlying COPD #acute hypoxic respiratory failure - pt observed dropping sats to mid 80s at night - this is likely due to underlying COPD/sleep apnea - rec outpatient sleep study #HT - was switched from HCTZ to lasix 4 days ago - hold PPX - SQH
--- NOTE | 2021-01-21 10:40 | PCM.DCSUM1 ---
Discharge Summary - Hospital Course Free Text/Narrative:: 75F w/ pmh RA, COPD, GERD, HT, recurrent UTIs, osteoporosis, Vit D def, breast ca s/p lumpectomy p/w weakness and dizziness. She describes 3 weeks of worsening lightheadedness. Has not fallen. Feels dry. No fevers. Denies vertigo. c/o 1 year 25 lbs weight loss. Loss of appetite in past weeks as well. Has chronic productive cough but no hemoptysis. Up to date on mammograms. Has scheduled cscope next mo. No bloody stools. ER evaluation found hyponatremia, hypomagnesemia, SYDE and orthostasis. #lightheadedness - appears dry, orthostatic +, hyponatremia - resolved w/ holding diuretics and hydration #SYED - FENa 0.1% - pre-renal #hypovolemic hyponatremia - resolved #hypomagnesemia - repleted #weight loss - needs age appropriate malignancy screening - chest CT neg for malignancy but suggestive of underlying COPD #acute hypoxic respiratory failure - pt observed dropping sats to mid 80s at night - this is likely due to underlying COPD/sleep apnea - rec outpatient sleep study #HT - was switched from HCTZ to lasix 4 days ago - hold - Discharge Data Discharge Date: 01/21/21 Discharge Disposition: Home, Self-Care 01 Condition: Good - Referral to Home Health Primary Care Physician: PCP Unobtainable - Discharge Plan *PRESCRIPTION DRUG MONITORING PROGRAM REVIEWED*: Not Applicable *COPY OF PRESCRIPTION DRUG MONITORING REPORT IN PATIENT [place]: Not Applicable Prescriptions/Med Rec: amLODIPine [Norvasc] 10 mg PO DAILY #1 tab Home Medications: Home Meds Omeprazole 40 mg PO DAILY 10/07/18 [History] Calcium Carbonate/Vitamin D3 [Calcium 500 + Vit D 400] 1 tab PO DAILY 12/08/18 [History] Olmesartan Medoxomil 40 mg PO DAILY 12/14/19 [History] Leflunomide 20 mg PO DAILY 06/16/20 [History] Cyanocobalamin (Vitamin B12) [Vitamin B12] 500 mcg PO DAILY 01/19/21 [History] Magnesium 250 mg PO DAILY 01/19/21 [History] Metoprolol Succinate 25 mg PO DAILY 01/19/21 [History] amLODIPine [Norvasc] 10 mg PO DAILY #1 tab 01/21/21 [Rx] Patient Handouts: Hyponatremia, [id number] Referrals: Jasen Ruvalcaba MD [Physician] - - Discharge Summary/Plan Comment DC Time >30 min.: Yes (35 min) - Patient Data Vitals - Most Recent: Last Vital Signs Temp 97.7 F 01/21/21 07:53 Pulse 95 01/21/21 08:07 Resp 20 01/21/21 07:53 BP 176/72 H 01/21/21 08:07 Pulse Ox 96 01/21/21 07:53 Orthostatic Blood Pressure [ 98/56 Standing] Orthostatic Blood Pressure [ 130/64 Sitting] Orthostatic Blood Pressure [ 157/59 Supine] Weight - Most Recent: 125 lb 12.8 oz I&O - Last 24 hours: Intake & Output 01/20/21 01/21/21 01/21/21 22:59 06:59 14:59 Intake Total 1300 982 395 Balance 1300 982 395 Med Orders - Current: Current Medications Acetaminophen (Acetaminophen 325 Mg Tab) 650 mg PO Q4H PRN PRN Reason: Pain (Mild 1-3)/fever Amlodipine Besylate (Amlodipine 5 Mg Tab) 5 mg PO DAILY [facility] Last Admin: 01/21/21 08:07 Dose: 5 mg Documented by: Heparin Sodium (Porcine) (Heparin Sodium 5,000 Units/Ml Vial) 5,000 units SUBCUT Q8HR [facility] Last Admin: 01/21/21 05:52 Dose: 5,000 units Documented by: Sodium Chloride (Normal Saline) 1,000 mls @ 125 mls/hr IV ASDIRECTED [facility] Last Admin: 01/21/21 05:49 Dose: 125 mls/hr Documented by: Melatonin (Melatonin 3 Mg Tab) 3 mg PO BEDTIME PRN PRN Reason: Insomnia Last Admin: 01/20/21 22:21 Dose: 3 mg Documented by: Metoprolol Succinate (Metoprolol Succinate 25 Mg Tab.Er) 25 mg PO DAILY [facility] Last Admin: 01/21/21 08:07 Dose: 25 mg Documented by: Leflunomide 20 Mg (Tab *Own Med*) 20 mg PO DAILY [facility] Last Admin: 01/21/21 08:08 Dose: 20 mg Documented by: Omeprazole (Omeprazole 20 Mg Cap.Cr) 40 mg PO ACBRK [facility] Last Admin: 01/21/21 05:51 Dose: 40 mg Documented by: Ondansetron HCl (Ondansetron 4 Mg Tab.Dis) 4 mg PO Q4H PRN PRN Reason: nausea, able to take PO Discontinued Medications Amlodipine Besylate (Amlodipine 5 Mg Tab) 5 mg PO ONETIME ONE Stop: 01/19/21 23:24 Last Admin: 01/19/21 23:37 Dose: 5 mg Documented by: Sodium Chloride (Normal Saline) 1,000 mls @ 999 mls/hr IV .BOLUS ONE Stop: 01/19/21 12:09 Last Admin: 01/19/21 11:19 Dose: 999 mls/hr Documented by: Magnesium Sulfate/Dextrose (Magnesium Sulfate In D5w 1 Gm/100 Ml) 1 gm in 100 mls @ 100 mls/hr IV ONETIME ONE Stop: 01/19/21 12:42 Last Infusion: 01/19/21 13:09 Dose: Infused Documented by: Metoprolol Succinate (Metoprolol Succinate 25 Mg Tab.Er) 25 mg PO ONETIME ONE Stop: 01/19/21 23:24 Last Admin: 01/19/21 23:37 Dose: 25 mg Documented by: - Exam Quality Assessment: Denies: Supplemental Oxygen General: Reports: Alert, Oriented HEENT: Reports: Pupils Equal Neck: Reports: Supple Lungs: Reports: Clear to Auscultation, Normal Respiratory Effort Cardiovascular: Reports: Regular Rate, Regular Rhythm GI/Abdominal Exam: Normal Bowel Sounds, Soft, Non-Tender, No Distention Extremities: No Pedal Edema Skin: Reports: Warm, Dry, Intact Neurological: Reports: No New Focal Deficit Psy/Mental Status: Reports: Alert, Normal Affect, Normal Mood
--- NOTE | 2021-01-21 11:14 | CR ---
EXAMINATION: Chest 1V Frontal SEX: Female AGE: 75 years CLINICAL HISTORY: 75-year-old female ex-smoker with hypoxia. Interpretation: Abnormal. *Asymmetric patchy new lingular consolidation (compared to 19 Jan 2021). Aspiration? Chronic shaggy bronchitic pattern with subtle peribronchial "cuffing" typical reactive airway disease. Normal cardiac silhouette i.e. size and configuration. No pulmonary vascular congestion, new alveolar edema or dependent pleural fluid accumulation. Chronic arthritic changes left shoulder. Evidence of vertebral plasty midthoracic spine (associated mild kyphosis). No new lung mass or hilar lymphadenopathy. No other alveolar consolidation, atelectasis, or interstitial "groundglass" interstitial infiltrates. CONCLUSION: Patchy new lingular consolidation (see above). Chronic bronchitic pattern.
== END 2021-01-21 11:45 | disposition home or self-care (01) | DRG 682 ==
LOC: DL.ED 09:45 → DL.MS 11:51
PROVIDERS: ADMIT Internal Medicine; ATTEND Internal Medicine
DX: N17.9 Acute kidney failure, unspecified (principal); J96.01 Acute respiratory failure with hypoxia; E87.1 Hypo-osmolality and hyponatremia; E83.42 Hypomagnesemia; Z20.822 Contact with and (suspected) exposure to COVID-19; M81.0 Age-related osteoporosis without current pathological fracture; R63.4 Abnormal weight loss; E55.9 Vitamin D deficiency, unspecified; E78.00 Pure hypercholesterolemia, unspecified; K21.9 Gastro-esophageal reflux disease without esophagitis; J44.9 Chronic obstructive pulmonary disease, unspecified; M06.9 Rheumatoid arthritis, unspecified; I10 Essential (primary) hypertension; M19.90 Unspecified osteoarthritis, unspecified site; G47.30 Sleep apnea, unspecified; Z88.0 Allergy status to penicillin; Z91.030 Bee allergy status; Z85.3 Personal history of malignant neoplasm of breast; Z68.21 Body mass index [BMI] 21.0-21.9, adult; Z79.899 Other long term (current) drug therapy; Z98.49 Cataract extraction status, unspecified eye; Z87.891 Personal history of nicotine dependence; Z28.82 Immunization not carried out because of caregiver refusal; Z87.440 Personal history of urinary (tract) infections
CPT/HCPCS: 36415; 71045; 71046; 71250; 80048; 80053; 82570; 83735; 83935; 84100; 84300; 84484; 85025; 93005; 93010; 99284; 99285-25; A9270-GY; J1644; J3475; J7030; U0002

== ENCOUNTER 2024-10-30 05:08 | Day surgery (SDC) | payer MEDICARE, OTHER ==
[2024-10-30] MEDS: Dextrose 5%-0.45% NaCl 1,000 ML IV SCH (05:50)
[2024-10-30] MEDS ORDERED: Midazolam 1 MG/ML 2 ML SDV ONE (06:01)
[2024-10-30] MEDS ORDERED: Midazolam 1 MG/ML 2 ML SDV IV ONE (06:02)
[2024-10-30] MEDS ORDERED: fentaNYL 100 MCG/2 ML SDV ONE (06:02)
[2024-10-30] MEDS ORDERED: fentaNYL 100 MCG/2 ML SDV IV ONE (06:02)
[2024-10-30] MEDS: fentaNYL 100 MCG/2 ML SDV IV ONE ×2 (06:25→06:27)
[2024-10-30] MEDS: Midazolam 1 MG/ML 2 ML SDV IV ONE ×2 (06:26→06:28)
== END 2024-10-30 08:49 | disposition home or self-care (01) ==
LOC: DL.ENDO 05:08
PROVIDERS: ATTEND Internal Medicine Gastroenterology
DX: R10.13 Epigastric pain (principal); R19.7 Diarrhea, unspecified; I10 Essential (primary) hypertension; J44.9 Chronic obstructive pulmonary disease, unspecified; K21.9 Gastro-esophageal reflux disease without esophagitis; M06.9 Rheumatoid arthritis, unspecified; E78.00 Pure hypercholesterolemia, unspecified; Z87.891 Personal history of nicotine dependence
CPT/HCPCS: 88305; J2250; J3010; J7799